=== PATIENT | female | born 1950 | race African-American/Black ===

== ENCOUNTER → 2020-05-12 | Outpatient (CLI) | payer MEDICARE ==
[~2020-05-12] MED LIST: REGADENOSON 0.4 MG/5 ML SYRINGE ONE
== END | disposition home or self-care (01) ==
LOC: CFH 11:37
PROVIDERS: ATTEND Internal Medicine Cardiovascular Disease
DX: I10 Essential (primary) hypertension (principal); R06.02 Shortness of breath
CPT/HCPCS: 78452; 93017; A9502; J2785